=== PATIENT | male | born 1990 ===

== ENCOUNTER 2018-06-21 09:55 | Emergency (ER) | payer MEDICAID ==
[2018-06-21 10:12] VITALS: BMI 27.2
[2018-06-21 10:16] VITALS: RESP 18; TEMP 98.7
--- NOTE | 2018-06-21 10:34 | ED PDOC ---
Arrival/HPI - General Historian: Patient - History of Present Illness Narrative History of Present Illness (Text): 06/21/18 10:31 28 y/o male, no significant pmh, allergic to penicillins, c/o fever/throat pain and painful swallowing x 3 days. Aching throat pain, aggravated by swallowing, admits low grade fever but no chills with no objective temperature, no recent traveling, no night sweat, no difficulty turning the neck or chin/tongue swelling, no other medical or psychological complaints. <Geoff Amaya - Last Filed: 06/21/18 11:40> <Arthur Nicole - Last Filed: 06/21/18 12:14> - General Chief Complaint: ENT Problem Time Seen by Provider: 06/21/18 10:24 Past Medical History - Provider Review Nursing Documentation Reviewed: Yes - Infectious Disease Hx of Infectious Diseases: None - Cardiac Hx Cardiac Disorders: No - Pulmonary Hx Respiratory Disorders: Yes Hx Asthma: Yes (per mother) - Neurological Hx Neurological Disorder: No - HEENT Hx HEENT Disorder: No - Renal Hx Renal Disorder: No - Endocrine/Metabolic Hx Endocrine Disorders: No - Hematological/Oncological Hx Blood Disorders: No - Integumentary Hx Dermatological Disorder: Yes Hx Eczema: Yes - Musculoskeletal/Rheumatological Hx Musculoskeletal Disorders: No - Gastrointestinal Hx Gastrointestinal Disorders: No - Genitourinary/Gynecological Hx Genitourinary Disorders: No - Psychiatric Hx Psychophysiologic Disorder: No Hx Substance Use: Yes - Anesthesia Hx Anesthesia: No <Geoff Amaya - Last Filed: 06/21/18 11:40> Family/Social History - Physician Review Nursing Documentation Reviewed: Yes Family/Social History: Unknown Family HX Smoking Status: Heavy Smoker > 10 Cigarettes Daily Hx Alcohol Use: No Hx Substance Use: Yes Substance used: Marijuana <Geoff Amaya - Last Filed: 06/21/18 11:40> Allergies/Home Meds <Geoff Amaya - Last Filed: 06/21/18 11:40> <Arthur Nicole - Last Filed: 06/21/18 12:14> Allergies/Adverse Reactions: Allergies lactose Allergy (Verified 06/21/18 10:14) DIARRHEA oats Allergy (Verified 06/21/18 10:14) ANAPHYLAXIS orange Allergy (Verified 06/21/18 10:14) ANAPHYLAXIS Penicillins Allergy (Verified 06/21/18 10:14) RASH Review of Systems - Review of Systems Constitutional: Fevers. absent: Fatigue Eyes: absent: Vision Changes ENT: Sore Throat. absent: Hearing Changes, Rhinorrhea Respiratory: absent: SOB, Cough Cardiovascular: absent: Chest Pain Gastrointestinal: absent: Abdominal Pain, Nausea, Vomiting Musculoskeletal: absent: Arthralgias, Back Pain, Neck Pain, Joint Swelling, Myalgias Skin: absent: Rash, Pruritis, Skin Lesions Neurological: absent: Headache Psychiatric: absent: Anxiety, Depression, Suicidal Ideation <Geoff Amaya Q - Last Filed: 06/21/18 11:40> Physical Exam Vital Signs Reviewed: Yes Vital Signs Temp Pulse Resp BP Pulse Ox 06/21/18 10:14 98.7 F 77 18 126/74 95 Temperature: Afebrile Blood Pressure: Normal Pulse: Regular Respiratory Rate: Normal Appearance: Positive for: Well-Appearing, Non-Toxic, Comfortable Pain Distress: Moderate Mental Status: Positive for: Alert and Oriented X 3 - Systems Exam Head: Present: Atraumatic, Normocephalic Pupils: Present: PERRL Extroacular Muscles: Present: EOMI Conjunctiva: Present: Normal Ears: Present: NORMAL TM, Normal Canal Mouth: Present: Moist Mucous Membranes Pharnyx: Present: ERYTHEMA. No: EXUDATE, Peritonsilar Swelling, Uvular Deviation, Strider, Soft Palate/Uvular Edema Nose (External): Present: Atraumatic. No: Abrasion, Contusion, Laceration Nose (Internal): Present: Normal Inspection, No Active Bleeding. No: Septal Hematoma, Epistaxis Neck: Present: Normal Range of Motion, Lymphadenopathy (lt. anterior), Trachea Midline. No: Meningeal Signs, MIDLINE TENDERNESS, Paraspinal Tenderness Respiratory/Chest: Present: Clear to Auscultation, Good Air Exchange. No: Respiratory Distress, Accessory Muscle Use Cardiovascular: Present: Regular Rate and Rhythm, Normal S1, S2, Peripheal Pulses Present. No: Murmurs, Tachycardic Abdomen: No: Tenderness, Distention, Peritoneal Signs Back: Present: Normal Inspection. No: CVA Tenderness, Midline Tenderness, Paraspinal Tenderness Upper Extremity: Present: Normal Inspection. No: Cyanosis, Edema Lower Extremity: Present: Normal Inspection. No: Edema Neurological: Present: GCS=15, CN II-XII Intact, Speech Normal Skin: Present: Warm, Dry, Normal Color. No: Rashes Psychiatric: Present: Alert, Oriented x 3, Normal Insight, Normal Concentration <Geoff Amaya - Last Filed: 06/21/18 11:40> Vital Signs Temp Pulse Resp BP Pulse Ox 06/21/18 11:54 72 18 122/78 98 06/21/18 10:14 98.7 F 77 18 126/74 95 <Arthur Nicole - Last Filed: 06/21/18 12:14> Medical Decision Making ED Course and Treatment: 06/21/18 10:49 -rapid strep -toradol and decadron -observe and reassess 06/21/18 11:40 -rapid strept is negative, feeling much better, eating and drinking well, advised to wait for the throat culture but the patient significantly concerning about the strept throat and request antibiotic. Pt. stated that he tried zithromax before which he has no adverse reaction or allergic reaction to this including no abdominal pain/nausea/vomiting/diarrhea. -Discharge home with motrin, zithromax, salt water gargling, soft food diet, follow up with your own pmd and ENT within 2 days, return to the ER for any new or worsening signs or symptoms. <Geoff Amaya - Last Filed: 06/21/18 11:40> - Medication Orders Current Medication Orders: Discontinued Medications Dexamethasone (Decadron Inj) 8 mg IM STAT STA Stop: 06/21/18 10:31 Last Admin: 06/21/18 10:40 Dose: 8 mg IM Administration Charges Document 06/21/18 10:40 SZA (Rec: 06/21/18 10:40 PARISH [id number]) Injection Site MAR Injection Site Right Gluteus Medius Charges for Administration # of IM Administrations 1 Ketorolac Tromethamine (Toradol) 60 mg IM STAT STA Stop: 06/21/18 10:31 Last Admin: 06/21/18 10:40 Dose: 60 mg MAR Pain Assessment Document 06/21/18 10:40 SZA (Rec: 06/21/18 10:41 PARISH [id number]) Pain Reassessment Is this a pain reassessment? No Sleep Is patient sleeping during reassessment? No Presence of Pain Presence of Pain Yes IM Administration Charges Document 06/21/18 10:40 SZA (Rec: 06/21/18 10:41 PARISH [id number]) Charges for Administration # of IM Administrations 1 Re-Assess: ROMAINE Pain Assessment Document 06/21/18 11:40 PARISH (Rec: 06/21/18 11:57 CATERuy [id number]) Pain Reassessment Is this a pain reassessment? Yes Sleep Is patient sleeping during reassessment? No Presence of Pain Presence of Pain Yes Pain Scale Used Protocol: PSCALES Pain Scale Used Numeric Description Description Intermittent Intensity of Pain at present 4 <Arthur Nicole - Last Filed: 06/21/18 12:14> - PA / LEAD GENERATOR / Resident Statement CLARISA has reviewed & agrees with the documentation as recorded. <Geoff Amaya - Last Filed: 06/21/18 11:40> - PA / LEAD GENERATOR / Resident Statement CLARISA has reviewed & agrees with the documentation as recorded. <Arthur Nicole - Last Filed: 06/21/18 12:14> Disposition/Present on Arrival - Present on Arrival Any Indicators Present on Arrival: No History of DVT/PE: No History of Uncontrolled Diabetes: No Urinary Catheter: No History of Decub. Ulcer: No History Surgical Site Infection Following: None - Disposition Have Diagnosis and Disposition been Completed?: Yes Disposition Time: 11:42 Patient Plan: Discharge <Geoff Amaya - Last Filed: 06/21/18 11:40> <Arthur Nicole - Last Filed: 06/21/18 12:14> - Disposition Diagnosis: Pharyngitis, Throat pain Disposition: HOME/ ROUTINE Condition: IMPROVED Additional Instructions: -Discharge home with motrin, zithromax, salt water gargling, soft food diet, follow up with your own pmd and ENT within 2 days, return to the ER for any new or worsening signs or symptoms. Prescriptions: RX: Ibuprofen [Motrin Tab] 600 mg PO QID PRN #30 tab PRN Reason: Other Azithromycin [Zithromax] 250 mg PO DAILY #6 tab Referrals: Tejinder Gregory DO [Staff Provider] - Follow up with primary [facility] [place], [place] [Outside] - Follow up with primary Forms: [employer] (Ukrainian), WORK NOTE
[2018-06-21 11:57] VITALS: BP 122/78; PULSE 72; O2SAT 98
== END 2018-06-21 11:58 | disposition home or self-care (01) ==
LOC: ED 09:55
DX: J02.9 Acute pharyngitis, unspecified (principal); F17.210 Nicotine dependence, cigarettes, uncomplicated
CPT/HCPCS: 87070; 87430; 96372; 99282; J1100; J1885